=== PATIENT | female | born 1950 | race African-American/Black ===

== ENCOUNTER 2016-12-09 06:45 | Emergency (ER) | payer OTHER, MEDICAID ==
[2016-12-09] MEDS ORDERED: SODIUM CHLORIDE 0.9% 10 ML FLUSH FLUSH PRN (07:01)
[2016-12-09] MEDS ORDERED: NS 1,000 ML IV ONE (07:01)
[2016-12-09 07:06] VITALS: BMI 35.4
[2016-12-09] MEDS ORDERED: ONDANSETRON HCL 4 MG/2 ML VIAL IV ONE (07:22)
[2016-12-09] MEDS ORDERED: HYDROmorphone 1 MG INJECTION IV ONE (07:22)
[2016-12-09] MEDS ORDERED: ONDANSETRON HCL 4 MG/2 ML VIAL IV PRN (07:22)
[2016-12-09] MEDS ORDERED: DIATRIZOATE MEGLMINE/SODIUM 30 ML BOTTLE PO ONE (07:22)
[2016-12-09] MEDS ORDERED: HYDROmorphone 1 MG INJECTION IV PRN (07:22)
[2016-12-09 07:35] LABS: ALLEN'S TEST PASS; BEb -1.7 (+/- 2); TCO2 23.1 MMOL/L (23-27)
[2016-12-09 07:36] LABS: ABG Draw Site Right Radial
[2016-12-09 07:40] LABS: AUTOMATED BASOPHIL 0.4 % (0-2); AUTOMATED EOSINOPHIL 1.4 % (0-5); AUTOMATED LYMPH 10.9 % (17-44); AUTOMATED MONOCYTE 4.3 % (3-10); MPV 8.6 fL (7.4-10.4)
[2016-12-09 07:44] LABS: BLOOD UREA NITROGEN 13 MG/DL (7-17); CALCIUM 8.5 MG/DL (8.4-10.2); CALCULATED OSMOLALITY 271 MOs/Kg (270-290); CHLORIDE 107 mEq/L (98-107); GLUCOSE 134 MG/DL (70-99); SODIUM LEVEL 140 mEq/L (137-146); TOTAL PROTEIN 7.4 G/DL (6.3-8.2)
--- NOTE | 2016-12-09 07:55 | EDPRACDOC ---
- General Information Stated Complaint: N/V Time Seen by Provider: 12/09/16 07:01 Information Source: Patient, Family Mode Of Arrival: Ambulance Home Medications: Home Medications Levothyroxine [Synthroid, Levoxyl] 25 mcg PO DAILY 07/25/13 Naproxen 500 mg PO BID 07/25/13 Omeprazole [Prilosec] 40 mg PO DAILY 07/25/13 Simvastatin [Zocor] 40 mg PO DAILY 07/25/13 Olanzapine [Zyprexa] 7.5 mg PO HS 12/09/16 Ondansetron [Zofran Odt] 4 mg PO Q6H PRN #15 tab.rapdis 12/09/16 Allergies/Adverse Reactions: Allergies Allergy/AdvReac Type Severity Reaction Status Date / Time No Known Allergies Allergy Verified 12/09/16 08:17 - History of Present Illness Onset: 12 hours Pain Location: Reports: Diffuse Pain Context: Reports: Spontaneous Pain Severity: Mild Pain Quality: Reports: Aching Pain Radiation: Reports: No Radiation Modifying Factors: improves with: Nothing Female Associated Signs & Symptoms: Reports: Nausea, Vomiting Oral Intake: Decreased Urinary Output: Normal - Treatment Prior to ED Arrival Reported Medications/Treatment [facility] Treatment ALS ED Past Medical History - History Reviewed Yes Nurses notes reviewed and agree except as marked - Patient Medical History Cardiac History: Reports: Atrial Fibrillation, Hypercholesterolemia Psychological History: Reports: Anxiety Systemic History: Reports: Hyperthyroidism - Social Medical History Smoking Status: Never smoker EDM Review of Systems - Review of Systems ROS Negative Except as Marked: Yes All systems reviewed and were negative except as marked - Physical Exam Constitutional: Alert (Awake), No apparent distress Oriented to: Time, Person, Place Last recorded Vital Signs: Last Vital Signs Temp 99.3 F 12/09/16 06:56 Pulse 96 12/09/16 09:04 Resp 22 12/09/16 09:04 BP 136/78 12/09/16 09:04 Pulse Ox 91 12/09/16 09:04 Oxygen Pulse Oxygen Saturation 91 O2 Device Nasal Cannula Oxygen Flow Rate 2 Fraction of Inspired Oxygen ( FIO2) - HEENT Head: Normal ( normocephalic) Eye Exam: Normal (PERRL, EOMI, Sclera white) Oropharynx: Normal (Pharynx:Moist without exudate,Gums-no swelling) Tympanic Membrane: Normal ENT EAC: Normal TMJ: Normal Nose: No Symptoms Reported (septum midline) Neck: Normal (FROM, trachea at midline) - Respiratory/Cardiovascular Respiratory: Normal - CTA (BBS clear to auscultation without adventitious sounds ) Cardiovascular: Tachycardia - GI Auscultation: Normal (NABS) Palpation: Normal (Soft,No rebound or guarding, non distended) Tenderness: Non tender Stewart's Sign: Negative - Musculoskeletal Back: Normal (Non-Tender) Extremities: Normal (Normal tone, Pulses 2+ No cyanosis or edema, FROM) - Integumentary Skin: Normal, Warm, Dry Lymphatics: Normal (no adenopathy) - Neurologic Memory Impaired: Normal Motor Function: Normal (Normal tone, Pulses 2+ No cyanosis or edema, FROM) Cranial Nerve: Normal (CN II-X11 intact sensation, strength 5/5) Cerebellar: Normal Mood Description: Normal Perception: Normal - Results 12/09/16 06:56 12/09/16 06:56 WBC 5.3 xk/uL (3.8-10.8) 12/09/16 06:56 RBC 4.63 xM/uL (4.20-5.40) 12/09/16 06:56 Hgb 12.9 g/dL (12.0-16.0) 12/09/16 06:56 Hct 39.2 % (36-47) 12/09/16 06:56 MCV 85 fL (81-99) 12/09/16 06:56 MCH 27.9 pg (27-32) 12/09/16 06:56 MCHC 32.9 g/dl (33-36) L 12/09/16 06:56 RDW 14.1 % (11.5-14.5) 12/09/16 06:56 Plt Count 232 xk/uL (130-400) 12/09/16 06:56 MPV 8.6 fL (7.4-10.4) 12/09/16 06:56 Neut % (Auto) 83.0 % (45-76) H 12/09/16 06:56 Lymph % (Auto) 10.9 % (17-44) L 12/09/16 06:56 Cecil % (Auto) 4.3 % (3-10) 12/09/16 06:56 Eos % (Auto) 1.4 % (0-5) 12/09/16 06:56 Baso % (Auto) 0.4 % (0-2) 12/09/16 06:56 Absolute Neuts (auto) 4.40 xk/uL (1.7-8.2) 12/09/16 06:56 Absolute Lymphs (auto) 0.53 xk/uL (0.65-4.75) L 12/09/16 06:56 PT 10.6 SEC (9.2-11.2) 12/09/16 06:56 INR 1.0 12/09/16 06:56 APTT 27.0 SEC (22-35) 12/09/16 06:56 Puncture Site Right radial 12/09/16 07:30 pH 7.420 pH UNITS (7.35-7.45) 12/09/16 07:30 pCO2 34.0 mmHg (35-45) L 12/09/16 07:30 pO2 64.0 mmHg (80-100) L 12/09/16 07:30 HCO3 22.1 MMOL/L (22-26) 12/09/16 07:30 Total CO2 23.1 MMOL/L (23-27) 12/09/16 07:30 Base Excess -1.7 (+/- 2) 12/09/16 07:30 FiO2 % 21% 12/09/16 07:30 Specimen Drawn By Piksa 12/09/16 07:30 Sodium 140 mEq/L (137-146) 12/09/16 06:56 Potassium 3.9 mEq/L (3.5-5.1) 12/09/16 06:56 Chloride 107 mEq/L (98-107) 12/09/16 06:56 Carbon Dioxide 21 mMOL/L (22-33) L 12/09/16 06:56 Anion Gap 16 mEq/L (8-16) 12/09/16 06:56 BUN 13 MG/DL (7-17) 12/09/16 06:56 Creatinine 0.80 MG/DL (0.52-1.04) 12/09/16 06:56 Estimated GFR (MDRD) > 60 mL/min (>=60) 12/09/16 06:56 Glucose 134 MG/DL (70-99) H 12/09/16 06:56 Calculated Osmolality 271 MOs/Kg (270-290) 12/09/16 06:56 Calcium 8.5 MG/DL (8.4-10.2) 12/09/16 06:56 Total Bilirubin 0.7 MG/DL (0.2-1.3) 12/09/16 06:56 AST 29 IU/L (14-36) 12/09/16 06:56 ALT 32 IU/L (9-52) 12/09/16 06:56 Alkaline Phosphatase 117 IU/L (55-165) 12/09/16 06:56 Troponin I < 0.01 ng/mL (<.04) 12/09/16 06:56 Ppj-V-Mlhjzkosnwp Pept 52 pg/mL (0-900) 12/09/16 06:56 Total Protein 7.4 G/DL (6.3-8.2) 12/09/16 06:56 Albumin 4.0 G/DL (3.5-5.0) 12/09/16 06:56 Lab Results 12/09/16 12/09/16 12/09/16 07:30 06:56 06:56 WBC 5.3 RBC 4.63 Hgb 12.9 Hct 39.2 MCV 85 MCH 27.9 MCHC 32.9 L RDW 14.1 Plt Count 232 MPV 8.6 Neut % (Auto) 83.0 H Lymph % (Auto) 10.9 L Cecil % (Auto) 4.3 Eos % (Auto) 1.4 Baso % (Auto) 0.4 Absolute Neuts (auto) 4.40 Absolute Lymphs (auto) 0.53 L PT 10.6 INR 1.0 APTT 27.0 Puncture Site Right radial pH 7.420 pCO2 34.0 L pO2 64.0 L HCO3 22.1 Total CO2 23.1 Base Excess -1.7 FiO2 % 21% Specimen Drawn By Piksa Sodium Potassium Chloride Carbon Dioxide Anion Gap BUN Creatinine Estimated GFR (MDRD) Glucose Calculated Osmolality Calcium Total Bilirubin AST ALT Alkaline Phosphatase Troponin I Xcf-F-Bzcedjcfdsd Pept Total Protein Albumin 12/09/16 06:56 WBC RBC Hgb Hct MCV MCH MCHC RDW Plt Count MPV Neut % (Auto) Lymph % (Auto) Cecil % (Auto) Eos % (Auto) Baso % (Auto) Absolute Neuts (auto) Absolute Lymphs (auto) PT INR APTT Puncture Site pH pCO2 pO2 HCO3 Total CO2 Base Excess FiO2 % Specimen Drawn By Sodium 140 Potassium 3.9 Chloride 107 Carbon Dioxide 21 L Anion Gap 16 BUN 13 Creatinine 0.80 Estimated GFR (MDRD) > 60 Glucose 134 H Calculated Osmolality 271 Calcium 8.5 Total Bilirubin 0.7 AST 29 ALT 32 Alkaline Phosphatase 117 Troponin I < 0.01 Gnj-H-Jglcmfcwnyk Pept 52 Total Protein 7.4 Albumin 4.0 - EKG EKG #1 Amoret: Normal Rhythm: ST Block: None Hypertrophy: None ST: Normal Decision Time to Discharge: 09:58 - Departure Yes I personally saw and evaluated the patient. Disposition: Home Condition: Good Final Diagnosis: VOMITING-RESOLVED, ABDOMINAL PAIN Instructions: Abdominal Pain (ED) Education/Counseling Given To: Patient Education/Counseling Given Regarding: Diagnosis, Treatment Referrals: Ted Mixon PA [Primary Care Provider] - One Week Prescriptions: New Ondansetron [Zofran Odt] 4 mg PO Q6H PRN #15 tab.rapdis PRN Reason: Nausea/Vomiting No Action Simvastatin [Zocor] 40 mg PO DAILY Levothyroxine [Synthroid, Levoxyl] 25 mcg PO DAILY Omeprazole [Prilosec] 40 mg PO DAILY Naproxen 500 mg PO BID Olanzapine [Zyprexa] 7.5 mg PO HS
[2016-12-09] MEDS ORDERED: Pharmacy Review for Metformin - IV Contrast Given SCH ×2 (08:00)
--- NOTE | 2016-12-09 08:15 | DIRPT ---
CLINICAL DATA: Chest pain, nausea, vomiting and cough since last night, scratchy throat EXAM: PORTABLE CHEST 1 VIEW COMPARISON: Portable exam 0750 hours compared to 07/26/2013 FINDINGS: Enlargement of cardiac silhouette. Mediastinal contours and pulmonary vascularity normal. Lungs clear. No pleural effusion or pneumothorax. Bones unremarkable. IMPRESSION: Enlargement of cardiac silhouette. No acute abnormalities. Electronically Signed By: Spencer Moreau M.D. On: 12/09/2016 08:12
--- NOTE | 2016-12-09 09:31 | DIRPT ---
CLINICAL DATA: Nausea and vomiting. EXAM: CT ABDOMEN AND PELVIS WITH CONTRAST TECHNIQUE: Multidetector CT imaging of the abdomen and pelvis was performed using the standard protocol following bolus administration of intravenous contrast. CONTRAST: 100 cc Isovue 370 COMPARISON: None. FINDINGS: Lower chest: Normal. Hepatobiliary: There are 3 low-density lesions in the right lobe of the liver, 6 mm on image 22, 11 mm on image 27 and 5 mm on image 18 all on series 3. There is only partial enhancement after contrast administration. Liver parenchyma is otherwise normal. Biliary tree is normal. Pancreas: Normal. Spleen: Normal. Adrenals/Urinary Tract: Normal. Stomach/Bowel: Normal. The appendix appears to been removed. Vascular/Lymphatic: Scattered calcifications in the abdominal aorta common iliac arteries. No adenopathy. Reproductive: Uterus and ovaries have been removed. Other: No free air or free fluid. Musculoskeletal: No acute abnormality. Severe degenerative disc disease from L3-4 through L5-S1 with grade 1 spondylolisthesis at L4-5. Severe bilateral facet arthritis at L4-5 and moderately severe facet arthritis at L5-S1. IMPRESSION: Three nonspecific small low-density lesions in the right lobe of the liver. Liver ultrasound recommended for further characterization. These could represent cysts or hemangiomas but I cannot exclude other etiologies on this study alone. No acute abnormalities. Aortic atherosclerosis. 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 Electronically Signed By: Jose Pinto M.D. On: 12/09/2016 09:28
[2016-12-09 10:23] VITALS: BP 151/83; PULSE 105; TEMP 98.8
== END 2016-12-09 10:18 | disposition home or self-care (01) ==
LOC: ED 06:45
DX: R11.10 Vomiting, unspecified (principal); R10.84 Generalized abdominal pain; I48.91 Unspecified atrial fibrillation; E05.90 Thyrotoxicosis, unspecified without thyrotoxic crisis or storm; E78.00 Pure hypercholesterolemia, unspecified; F41.9 Anxiety disorder, unspecified; Z79.899 Other long term (current) drug therapy
CPT/HCPCS: 36415; 36600; 71010; 74177; 80053; 82803; 83880; 84484; 85025; 85610; 85730; 93005; 96361; 96374; 96375; 99285; A9698; J1170; J2405